=== PATIENT | female | born 1975 | race Caucasian/White ===

== ENCOUNTER 2019-03-09 12:00 | Inpatient (IN) | payer OTHER ==
[~2019-03-09] VITALS: Ht 162.6 cm; Wt 97.1 kg
[2019-03-09] MEDS ORDERED: INDERAL XL80 MG PO (15:35)
[2019-03-09] MEDS ORDERED: ATACAND16 MG PO (15:36)
[2019-03-09] MEDS ORDERED: LIPITOR40 MG PO (15:36)
[2019-03-09] MEDS ORDERED: VITAMIN D310000 UNIT PO (15:37)
[2019-03-13] MEDS ORDERED: COLACE100 MG PO (09:03)
[2019-03-13] MEDS ORDERED: ULTRACET PO (09:04)
== END 2019-03-13 11:24 | disposition home or self-care (01) | DRG 743 ==
LOC: O/R 03-12 05:50 → OB/GYN 03-12 13:19
PROVIDERS: ADMIT Obstetrics & Gynecology Gynecologic Oncology
PROC: 0UT7FZZ Resection of Bilateral Fallopian Tubes, Via Natural or Artificial Opening With Percutaneous Endoscopic Assistance (ICD-10-PCS; 2019-03-12)
PROC: 0UT9FZZ Resection of Uterus, Via Natural or Artificial Opening With Percutaneous Endoscopic Assistance (ICD-10-PCS; principal; 2019-03-12 08:30)
DX: N92.4 Excessive bleeding in the premenopausal period (principal); D25.2 Subserosal leiomyoma of uterus; D25.1 Intramural leiomyoma of uterus; N70.11 Chronic salpingitis; N71.1 Chronic inflammatory disease of uterus; R19.00 Intra-abdominal and pelvic swelling, mass and lump, unspecified site